=== PATIENT | female | born 1980 | race Caucasian/White ===

== ENCOUNTER 2019-08-20 12:27 | Emergency (ER) | payer MEDICAID ==
--- NOTE | 2019-08-20 12:55 | EDM.PDOC ---
ED HPI GENERAL MEDICAL PROBLEM - General Chief Complaint: Lower Extremity Injury/Pain Stated Complaint: L, DARK VEIN IN R LEG Time Seen by Provider: 08/20/19 12:51 Source of Information: Reports: Patient, RN Notes Reviewed History Limitations: Reports: No Limitations - History of Present Illness INITIAL COMMENTS - FREE TEXT/NARRATIVE: 39-year-old female presents emergency department a complaint of red swollen right leg she does have a history of DVT on the right leg recently completed a 4 -month course of warfarin she does not know the etiology of her DVT. She does not smoke cigarettes does not use control pills has an IUD in place no testing was done at that time - Related Data Allergies Allergy/AdvReac Type Severity Reaction Status Date / Time No Known Allergies Allergy Verified 02/13/15 23:02 Home Meds: Home Meds Levonorgestrel [Mirena] 1 device IMPLANT ASDIRECTED 02/13/15 [History] Apixaban [Eliquis] 5 mg PO BID #60 tablet 08/20/19 [Rx] Apixaban [Eliquis] 10 mg PO BID #14 tablet 08/20/19 [Rx] Past Medical History Musculoskeletal History: Reports: Fracture - Past Surgical History HEENT Surgical History: Reports: Tonsillectomy GI Surgical History: Reports: Bariatric Procedure Social & Family History - Tobacco Use Smoking Status *Q: Never Smoker - Alcohol Use Days Per Week of Alcohol Use: 7 Number of Drinks Per Day: 2 Total Drinks Per Week: 14 - Recreational Drug Use Recreational Drug Use: No Review of Systems - Review of Systems Review Of Systems: See Below Constitutional: Reports: No Symptoms Respiratory: Reports: No Symptoms Cardiovascular: Reports: No Symptoms Musculoskeletal: Reports: Leg Pain Skin: Reports: Erythema ED EXAM, GENERAL - Physical Exam Exam: See Below Free Text/Narrative:: Examination the right leg I do feel a palpable thread on the thigh mid shaft consistent with superficial thrombophlebitis it is warm to the touch and tender to the touch Exam Limited By: No Limitations General Appearance: Alert, WD/WN, No Apparent Distress Respiratory/Chest: No Respiratory Distress Course - Vital Signs Last Recorded V/S: Last Vital Signs Temp 97.4 F 08/20/19 12:41 Pulse 74 08/20/19 15:38 Resp 16 08/20/19 12:41 BP 129/91 H 08/20/19 15:38 Pulse Ox 98 08/20/19 12:41 - Orders/Labs/Meds Orders: Active Orders 24 hr Category Date Time Status Peripheral IV Care [RC] . DIRECTED Care 08/20/19 14:35 Active VL Duplex Lwr Ext Veins Ltd Rt [US] Stat Exams 08/20/19 12:54 Taken Sodium Chloride 0.9% [Normal Saline] 1,000 ml Med 08/20/19 14:45 Active IV ASDIRECTED Sodium Chloride 0.9% [Saline Flush] Med 08/20/19 14:34 Active 10 ml FLUSH ASDIRECTED PRN Peripheral IV Insertion Adult [OM.PC] Urgent Oth 08/20/19 14:34 Ordered Medication Orders Sodium Chloride (Normal Saline) 1,000 mls @ 500 mls/hr IV ASDIRECTED TREMAYNE Last Admin: 08/20/19 14:59 Dose: 500 mls/hr Sodium Chloride (Saline Flush) 10 ml FLUSH ASDIRECTED PRN PRN Reason: Keep Vein Open Last Admin: 08/20/19 14:50 Dose: 10 ml Labs: Laboratory Tests 08/20/19 08/20/19 08/20/19 Range/Units 13:17 13:17 13:17 WBC 7.3 (4.5-11.0) K/uL RBC 4.31 (3.30-5.50) M/uL Hgb 12.9 (12.0-15.0) g/dL Hct 38.6 (36.0-48.0) % MCV 90 (80-98) fL MCH 30 (27-31) pg MCHC 33 (32-36) % Plt Count 273 (150-400) K/uL Neut % (Auto) 75 H (36-66) % Lymph % (Auto) 15 L (24-44) % [place] % (Auto) 7 H (2-6) % Eos % (Auto) 3 (2-4) % Baso % (Auto) 0 (0-1) % PT (9.5-12.0) sec INR (0.80-1.20) APTT 25.0 L (27.0-36.0) sec D-Dimer, Quantitative 1510 H (0.0-400.0) ng/mL Sodium (140-148) mmol/L Potassium (3.6-5.2) mmol/L Chloride (100-108) mmol/L Carbon Dioxide (21-32) mmol/L Anion Gap (5.0-14.0) mmol/L BUN (7-18) mg/dL Creatinine (0.6-1.0) mg/dL Est Cr Clr Drug Dosing mL/min Estimated GFR (MDRD) (>60) Glucose (74-106) mg/dL Calcium (8.5-10.1) mg/dL 08/20/19 08/20/19 Range/Units 13:17 13:17 WBC (4.5-11.0) K/uL RBC (3.30-5.50) M/uL Hgb (12.0-15.0) g/dL Hct (36.0-48.0) % MCV (80-98) fL MCH (27-31) pg MCHC (32-36) % Plt Count (150-400) K/uL Neut % (Auto) (36-66) % Lymph % (Auto) (24-44) % [place] % (Auto) (2-6) % Eos % (Auto) (2-4) % Baso % (Auto) (0-1) % PT 11.2 (9.5-12.0) sec INR 1.04 (0.80-1.20) APTT (27.0-36.0) sec D-Dimer, Quantitative (0.0-400.0) ng/mL Sodium 137 L (140-148) mmol/L Potassium 4.2 (3.6-5.2) mmol/L Chloride 101 (100-108) mmol/L Carbon Dioxide 26 (21-32) mmol/L Anion Gap 14.2 H (5.0-14.0) mmol/L BUN 8 (7-18) mg/dL Creatinine 0.8 (0.6-1.0) mg/dL Est Cr Clr Drug Dosing 97.13 mL/min Estimated GFR (MDRD) > 60 (>60) Glucose 94 (74-106) mg/dL Calcium 8.6 (8.5-10.1) mg/dL Meds: Medications Generic Name Dose Route Start Last Admin Trade Name Freq PRN Reason Stop Dose Admin Sodium Chloride 1,000 mls @ 500 mls/hr 08/20/19 14:45 08/20/19 14:59 Normal Saline IV 500 mls/hr ASDIRECTED TREMAYNE Administration Sodium Chloride 10 ml 08/20/19 14:34 08/20/19 14:50 Saline Flush FLUSH 10 ml ASDIRECTED PRN Administration Keep Vein Open Discontinued Medications Generic Name Dose Route Start Last Admin Trade Name Davidq PRN Reason Stop Dose Admin Apixaban 10 mg 08/20/19 15:41 08/20/19 15:46 Eliquis PO 08/20/19 15:42 10 mg ONETIME ONE Administration Sodium Chloride 100 mls @ 4 mls/sec 08/20/19 14:45 08/20/19 14:51 Normal Saline IV 08/20/19 14:46 4 mls/sec ASDIRECTED TREMAYNE Administration Iopamidol 100 ml 08/20/19 14:45 08/20/19 14:50 Isovue-370 (76%) IV 08/20/19 14:46 100 ml . DIRECTED TREMAYNE Administration Sodium Chloride 10 ml 08/20/19 14:45 Saline Flush FLUSH 08/20/19 14:46 ONETIME TREMAYNE Departure - Departure Time of Disposition: 15:52 Disposition: Home, Self-Care 01 Condition: Fair Clinical Impression: Pulmonary embolism Qualifiers: Pulmonary embolism type: multiple subsegmental (without acute cor pulmonale) Qualified Code(s): I26.94 - Multiple subsegmental pulmonary emboli without acute cor pulmonale Right leg DVT Qualifiers: Affected thrombotic vein of extremity: unspecified vein of extremity Chronicity : unspecified Qualified Code(s): I82.401 - Acute embolism and thrombosis of unspecified deep veins of right lower extremity - Discharge Information Prescriptions: Apixaban [Eliquis] 10 mg PO BID #14 tablet Apixaban [Eliquis] 5 mg PO BID #60 tablet Instructions: Bleeding Precautions When on Anticoagulant Therapy, Adult Referrals: PCP,None [Primary Care Provider] - Forms: ED Department Discharge Additional Instructions: Continue your Eliquis at 10 mg twice a day for 1 week, then reduce the dose to 5 mg twice a day probably indefinitely, please follow-up with your primary care in the next 3 to 5 days for reevaluation Sepsis Event Note - Evaluation Sepsis Screening Result: No Definite Risk - Focused Exam Vital Signs: Vital Signs Temp Pulse Resp BP Pulse Ox 08/20/19 15:38 74 129/91 H 08/20/19 12:41 97.4 F 85 16 155/94 H 98 08/20/19 12:40 97.4 F 85 16 155/94 H 98 Date Exam was Performed: 08/20/19 Time Exam was Performed: 15:47 - My Orders Last 24 Hours: My Active Orders 08/20/19 12:54 VL Duplex Lwr Ext Veins Ltd Rt [US] Stat 08/20/19 14:34 Sodium Chloride 0.9% [Saline Flush] 10 ml FLUSH ASDIRECTED PRN Peripheral IV Insertion Adult [OM.PC] Urgent 08/20/19 14:35 Peripheral IV Care [RC] . DIRECTED 08/20/19 14:45 Sodium Chloride 0.9% [Normal Saline] 1,000 ml IV ASDIRECTED - Assessment/Plan Last 24 Hours: My Active Orders 08/20/19 12:54 VL Duplex Lwr Ext Veins Ltd Rt [US] Stat 08/20/19 14:34 Sodium Chloride 0.9% [Saline Flush] 10 ml FLUSH ASDIRECTED PRN Peripheral IV Insertion Adult [OM.PC] Urgent 08/20/19 14:35 Peripheral IV Care [RC] . DIRECTED 08/20/19 14:45 Sodium Chloride 0.9% [Normal Saline] 1,000 ml IV ASDIRECTED Plan: Assessment Acuity = acute Site and laterality = bilateral pulmonary embolism with right leg DVT Etiology = unknown Manifestations = none Location of injury = Home Lab values = CBC BMP unremarkable d-dimer elevated 1510 INR and PTT within normal limits, ultrasound does demonstrate DVT in the right lower extremity a CT scan of the chest does demonstrate multiple small pulmonary embolism with no right heart strain Plan I did review options with her she elected to try Eliquis today rather than go back on Coumadin therefore she was provided 10 mg Eliquis now she will do 10 mg p.o. twice daily x1 week with 5 mg twice daily continuing this is her second event recommend she continue anticoagulation indefinitely but please review this with your primary care, her medications have been faxed to [facility]. Follow-up primary care 3 to 5 days for reevaluation This note was dictated using [employer] voice recognition software please call with any questions on syntax or grammar.
[2019-08-20] MEDS ORDERED: Sodium Chloride 0.9% 10 ML Syringe FLUSH PRN (14:34)
[2019-08-20] MEDS ORDERED: Sodium Chloride 0.9% 10 ML Syringe FLUSH SCH (14:45)
[2019-08-20] MEDS ORDERED: Sodium Chloride 0.9% 1,000 ML IV SCH (14:45)
[2019-08-20] MEDS ORDERED: Sodium Chloride 0.9% 100 ML IV SCH (14:45)
[2019-08-20] MEDS ORDERED: Iopamidol 755 Mg/ML 100 ML Bottle IV SCH (14:45)
--- NOTE | 2019-08-20 15:29 | CRLCT ---
INDICATION: Right leg DVT TECHNIQUE: CT chest pulmonary PE protocol acquired with 100 cc Isovue 370 IV contrast. COMPARISON: None FINDINGS: Cardiovascular structures: There is DVT within subsegmental branches of the bilateral upper and lower lobes. No evidence for right heart strain. Heart size is normal. No sign of aneurysm in the thoracic aorta. Mediastinum and eliecer: No mass or adenopathy. Lungs: Clear. Pleura and pericardium: No effusions. Chest wall and axilla: No mass or adenopathy. Upper abdomen: Status post gastric bypass procedure. Bones: No significant findings. IMPRESSION: Study is positive for DVT within subsegmental branches of the bilateral upper and lower lobes. No evidence for right heart strain. Status post gastric bypass procedure. Findings discussed with Officer at 3:25 p.m. on August 20, 2019. Please note that all CT scans at this facility use dose modulation, iterative reconstruction, and/or weight-based dosing when appropriate to reduce radiation dose to as low as reasonably achievable. Dictated by Nallely Zuniga MD @ Aug 20 2019 3:16PM Signed by Dr. Nallely Zuniga @ Aug 20 2019 3:28PM
[2019-08-20 15:38] VITALS: BP 129/91; PULSE 74
[2019-08-20] MEDS ORDERED: Apixaban 5 MG Tab PO ONE (15:41)
--- NOTE | 2019-08-21 09:59 | US ---
VL Duplex Lwr Ext Veins Ltd Rt INDICATION: pain tender, hx of dvt just completed warfarin FINDINGS: Ultrasound examination of the lower extremity using Doppler and compressive technique demonstrates normal flow and compressibility. The superficial femoral vein also shows compressibility and normal phasic flow and augmentation. There is incompressibility of the popliteal vein with no phasic flow or augmentation. IMPRESSION: Deep venous thrombosis in the popliteal vein. The proximal popliteal thrombus is of uncertain chronology. The distal pelvis is more likely acute. Patient has a history of previous DVT
== END 2019-08-20 16:10 | disposition home or self-care (01) ==
LOC: JP.ED 12:27
DX: I26.94 Multiple subsegmental thrombotic pulmonary emboli without acute cor pulmonale (principal); I82.401 Acute embolism and thrombosis of unspecified deep veins of right lower extremity
CPT/HCPCS: 36415; 71275; 80048; 85025; 85379; 85610; 85730; 93971; 96360; 99284; A9270; J7030; J7050; Q9967

== ENCOUNTER 2021-02-01 01:16 | Emergency (ER) | payer MEDICAID ==
--- NOTE | 2021-02-01 01:31 | EDM.PDOC ---
ED HPI GENERAL MEDICAL PROBLEM - General Chief Complaint: Back Pain or Injury Stated Complaint: HIP PAIN Time Seen by Provider: 02/01/21 01:16 Source of Information: Reports: Patient History Limitations: Reports: No Limitations - History of Present Illness INITIAL COMMENTS - FREE TEXT/NARRATIVE: Patient presents the emergency room via EMS secondary to acute onset of low back pain/muscle spasms. She states that she had back discomfort that was increasing in nature this evening she went into the bathroom and was attempting to sit down when she had acute muscle spasm and had to get down on the ground. After spasms subsided in a resting position she was unable to get up secondary to pain that was caused. Patient denies any injury or accident she denies any radicular pain . She says it is 0 at rest and a 10 out of 10 whenever she moves. 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 Denies any loss of bowel or bladder function or other red flag symptoms of concern PMH--hx PE/DVT Meds--xeralto NKDA LMP--2005, has Mirena IUD in place (last replaced in 2019) Tob/Drug--denies EtOH--wine, 1-2 glass/night Denies any known COVID infection nor has she received the COVID immunization Onset: Today, Sudden Back Pain Score (Numeric/FACES): 5 - Related Data Allergies Allergy/AdvReac Type Severity Reaction Status Date / Time No Known Allergies Allergy Verified 02/13/15 23:02 Home Meds: Home Meds Levonorgestrel [Mirena] 1 device IMPLANT ASDIRECTED 02/13/15 [History] Rivaroxaban [Xarelto] 20 mg PO DAILY 02/01/21 [History] Past Medical History Musculoskeletal History: Reports: Fracture - Past Surgical History HEENT Surgical History: Reports: Tonsillectomy GI Surgical History: Reports: Bariatric Procedure Social & Family History - Tobacco Use Tobacco Use Status *Q: Never Tobacco User - Alcohol Use Days Per Week of Alcohol Use: 7 Number of Drinks Per Day: 2 Total Drinks Per Week: 14 - Recreational Drug Use Recreational Drug Use: No ED ROS GENERAL - Review of Systems Review Of Systems: Comprehensive ROS is negative, except as noted in HPI. Musculoskeletal: Reports: Back Pain, Muscle Pain, Muscle Stiffness ED EXAM,LOWER BACK PAIN/INJURY - Physical Exam Exam: See Below Exam Limited By: No Limitations General Appearance: Alert, WD/WN, Moderate Distress (with movement from EMS gurney walking into ER room/sitting on edge of bed 5/10. once laying flat reports 0/10 pain) Eye Exam: Bilateral Eye: EOMI, Normal Inspection Ears: Normal External Exam, Hearing Grossly Normal Nose: Normal Inspection Throat/Mouth: Normal Inspection, Normal Voice, No Airway Compromise Head: Atraumatic, Normocephalic Neck: Normal Inspection, Supple, Full Range of Motion Respiratory/Chest: No Respiratory Distress Cardiovascular: No Edema (Female) Exam: Deferred Rectal (Female) Exam: Deferred Back Exam: Normal Inspection, Decreased Range of Motion, Muscle Spasm, Paraspinal Tenderness (lower lumbar/SI, R>>L) Extremities: Normal Inspection, No Pedal Edema, Normal Capillary Refill Neurological: Alert, Normal Mood/Affect, Normal Plantar Flexion, Normal Gait (gait slow & steady, unaided), No Motor/Sensory Deficits, Oriented x 3 Psychiatric: Normal Affect, Normal Mood Skin Exam: Warm, Dry, Intact, Normal Color Course - Vital Signs Text/Narrative:: Discussed with patient today's ER exam findings and recommendations and further care to include salon pass/lidocaine patch 12 hours on 12 hours off, anti- inflammatorywe will provide prescription for Toradol at this time, and muscle relaxantwe will provide prescription for that at this time that she can obtain both through [facility] prior to discharge from the ER. Salonpas/lidocaine patches are available [id number] will dispense initial out of the ER. Did discuss with patient use of ice or heat, if she decides to use heat with a heating pad to use on a low setting and avoid sleeping with it as not to have further injury such as a skin burn. Recommend that patient follow-up with her primary care provider on Tuesday for further evaluation and management which may include referral to physical therapy. Did discuss with patient do not life on a couch sit in a regular chair or recliner with lumbar support is recommended. Also did discuss with her not to drive when using muscle relaxant secondary to possible drowsiness that it may cause. Patient verbalized understanding agree with plan of care ready for discharge Last Recorded V/S: Last Vital Signs Temp 96.3 F L 09/19/21 01:19 Pulse 80 02/01/21 01:19 Resp 20 02/01/21 01:19 BP 154/105 H 02/01/21 01:19 Pulse Ox 98 02/01/21 01:19 Departure - Departure Time of Disposition: 01:33 Disposition: Home, Self-Care 01 Condition: Good Clinical Impression: Acute low back pain without sciatica, Muscle spasm, Elevated blood pressure reading - Discharge Information *PRESCRIPTION DRUG MONITORING PROGRAM REVIEWED*: Not Applicable *COPY OF PRESCRIPTION DRUG MONITORING REPORT IN PATIENT SHAYNE: Not Applicable Instructions: Muscle Cramps and Spasms, [id number], Acute Back Pain, Adult, How to Take Your Blood Pressure, [id number], Back Exercises, [id number] Referrals: PCP,None [Primary Care Provider] - Additional Instructions: As discussed it is recommended that you use ice or heat, if you decide to use a heating pad please use it on the low setting and do not sleep with it sleeping with a heating pad may result in a secondary skin burn. I have provided you with salon pass/lidocaine patch here in the emergency room, further patches can be obtained [id number] they were located in the section where athletic rubs can be found. Patches can be worn for 12 hours and then should be removed for 12 hours. Wear of patch is determined by your preference and episodes of pain. If pain mostly occurs when you are up moving about then you might want to try wearing it during the daytime if back pain is keeping you from sleeping then wear it at night to help with sleep. I have provided you with a prescription for cyclobenzaprine (Flexeril) which is a muscle relaxant--do not drive when taking this medication that may cause drowsiness. I have provided you with a prescription for an anti-inflammatory called ketorolac (Toradol) please use only as directed. Do not take any bnff-ymn-erchest ibuprofen (Motrin, Advil) or naproxen (Aleve) in the same 24 hours that you have use the ketorolac secondary to these medications being of the same type and possible damage to your kidneys It is recommended that you follow-up with your primary care provider on Tuesday in regards to today's ER visit and for further evaluation and management of your acute back pain to include possible referral to physical therapy. Should you have further concerns increasing pain or discomfort that is not managed by medications provided in the ER tonight please return to the emergency room for further evaluation and care Sepsis Event Note (ED) - Evaluation Sepsis Screening Result: No Definite Risk - Focused Exam Vital Signs: Vital Signs Temp Pulse Resp BP Pulse Ox 02/01/21 01:19 96.3 F L 80 20 154/105 H 98
[2021-02-01] MEDS ORDERED: Lidocaine 5% 700 MG Patch TRDERM ONE (01:37)
[2021-02-01 01:49] VITALS: BP 154/105; PULSE 80
== END 2021-02-01 01:53 | disposition home or self-care (01) ==
LOC: JP.ED 01:16
DX: M62.830 Muscle spasm of back (principal); R03.0 Elevated blood-pressure reading, without diagnosis of hypertension; Z86.718 Personal history of other venous thrombosis and embolism; Z79.01 Long term (current) use of anticoagulants
CPT/HCPCS: 99283; A9270